=== PATIENT | male | born 1955 | race Caucasian/White ===

== ENCOUNTER 2023-12-26 14:13 | Observation (INO) ==
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
[2023-12-26] MEDS: NS 1,000 ML IV 1,000 ML IV ONE (14:39)
[2023-12-26 14:42] VITALS: BMI 31.2
[2023-12-26 14:52] LABS: BASOPHILS % (AUTO) 0.4 % (0.2-1.0); EOSINOPHILS # (AUTO) 0.2 x10^3/uL (0.0-0.2); EOSINOPHILS % (AUTO) 1.8 % (0.9-2.9); HEMATOCRIT 45.2 % (42.0-54.0); HEMOGLOBIN 15.3 g/dL (13.5-18.0); LYMPHOCYTES # (AUTO) 1.3 X10^3/uL (1.3-2.9); LYMPHOCYTES % (AUTO) 12.7 % (21.0-51.0); MEAN CORPUSCULAR HEMOGLOBIN 30.8 pg (27.0-34.0); MEAN CORPUSCULAR HGB CONC 33.8 g/dL (33.0-35.0); MEAN CORPUSCULAR VOLUME 91.1 fL (80.0-100.0); MEAN PLATELET VOLUME 9.7 fL (7.4-11.0); MONOCYTES # (AUTO) 0.8 x10^3/uL (0.3-0.8); MONOCYTES % (AUTO) 8.1 % (0.0-13.0); PLATELET COUNT 274 X10^3/uL (150.0-450.0); RED BLOOD COUNT 4.96 X10^6/uL (4.7-6.0); RED CELL DISTRIBUTION WIDTH 13.6 % (11.6-16.5); WHITE BLOOD COUNT 10.3 X10^3/uL (3.6-10.0)
[2023-12-26 15:00] LABS: ALANINE AMINOTRANSFERASE 31 Units/L (12-78); ALBUMIN 3.3 g/dL (3.4-5.0); ALKALINE PHOSPHATASE 89 Units/L (46-116); ASPARTATE AMINO TRANSFERASE 20 Units/L (15-37); BLOOD UREA NITROGEN 8 mg/dL (7-18); CALCIUM 9.2 mg/dL (8.5-10.1); CARBON DIOXIDE 27.2 mmol/L (21-32); CHLORIDE 93 mmol/L (98-107); COR CA(FOR HYPOALB) 9.8 mg/dL (8.5-10.1); COR NA(FOR HYPERGLY) 132 mmol/L (136-145); GLUCOSE 222 mg/dL (65-99); POTASSIUM 3.9 mmol/L (3.5-5.1); SODIUM 129 mmol/L (136-145); TOTAL PROTEIN 7.7 g/dL (6.4-8.2); eGFR NON BLACK RACES > 60 (>60)
[2023-12-26 15:08] LABS: LIPASE 412 Units/L (16-77)
--- NOTE | 2023-12-26 15:57 | CT ---
EXAM:ABDCMEN/PELVIS WITH CONHISTORY:DIFFUSE ABD PAIN;COMPARISON:None available.TECHNIQUE:Multiple axial images of the abdomen and pelvis were obtained from the lung bases to the pubic symphysis after the administration of IV contrast. Dose reduction techniques including Automated Exposure Control (AEC) and adjustment of mA and kV were utilized.FINDINGS:The visualized portions of the lung bases are unremarkable . The liver, spleen, pancreas, kidneys, and adrenal glands are unremarkable in their CT appearance. The gallbladder is unremarkable in its CT appearance . No significant mesenteric lymphadenopathy or stranding can be observed. No free fluid or free air is seen within the abdomen. The appendix is unremarkable in its CT appearance. Left-sided inguinal hernia is observed with predominantly fat containing hernia sac a sliding hernia sigmoid colon chest within the additional opening of the hernias. No bowel wall thickening or bowel dilatation is present. Diffuse diverticular changes of the sigmoid colon are observed without CT evidence for acute diverticulitis. The urinary bladder is grossly unremarkable. The bony structures are grossly intact.IMPRESSION:Left-sided inguinal hernia with small amount of sigmoid colon extending into the predominantly fat containing hernia sac. Diffuse diverticular changes of the sigmoid colon are observed without CT evidence for acute diverticulitis. Otherwise no acute abnormality of the abdomen or pelvis can be identified.THIS IS AN ELECTRONICALLY VERIFIED FINAL REPORT12/26/2023 3:50 PM - Electronically signed by Juaquin Segundo MD
[2023-12-26 16:14] LABS: BILIRUBIN,URINE NEGATIVE (NEGATIVE); BLOOD/HEMOGLOBIN,URINE 2+ (NEGATIVE); GLUCOSE, URINE 1+ (NEGATIVE); KETONES,URINE NEGATIVE (NEGATIVE); LEUKOCYTE ESTERASE ,URINE NEGATIVE (NEGATIVE); NITRITES,URINE NEGATIVE (NEGATIVE); PROTEIN,URINE 2+ (NEGATIVE); UROBILINOGEN,URINE NORMAL (NORMAL)
[2023-12-26 16:16] LABS: APPEARANCE,URINE CLEAR (CLEAR); COLOR,URINE YELLOW (YELLOW)
[2023-12-26 16:19] LABS: BACTERIA,URINE TRACE /HPF (NEGATIVE); SQUAMOUS EPITHELIAL CELL,UR FEW /HPF (NEGATIVE)
[2023-12-26] MEDS: LR 1,000 ML IV 1,000 ML IV SCH (16:56)
[2023-12-26] MEDS: MORPHINE SULFATE INJ 4 MG IVP ONE (17:24)
[2023-12-26] MEDS: ZOFRAN INJ 4 MG VIAL IVP ONE (17:25)
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
--- NOTE | 2023-12-26 17:49 | EKG ---
Test Reason : Irregular rate, frequent PACs Blood Pressure : */* mmHG Vent. Rate : 81 BPM Atrial Rate : * BPM P-R Int : * ms QRS Dur : 88 ms QT Int : 396 ms P-R-T Axes : * 34 64 degrees QTc Int : 460 ms Sinus rhythm with pvc and pacs Abnormal ECG No previous ECGs available Confirmed by Ja Bianchi MD ([id number]) on 12/27/2023 7:28:56 AM Referred By: Confirmed By: Ja Bianchi MD
[2023-12-26] MEDS ORDERED: CONSULT PHARMACY - POTASSIUM & MAGNESIUM XX SCH (18:42)
[2023-12-26] MEDS ORDERED: ZOFRAN INJ 4 MG VIAL IVP PRN (18:42)
[2023-12-26] MEDS: XALATAN OP SCH (21:11)
[2023-12-26] MEDS: CRESTOR TAB 10 MG PO SCH (21:12)
[2023-12-26] MEDS: MORPHINE SULFATE INJ 4 MG IVP PRN (21:13)
[2023-12-26] MEDS: NovoLIN R (or HumuLIN R) SUBCUT PRN (21:28)
[2023-12-27] MEDS: LR 1,000 ML IV 1,000 ML IV SCH (01:28)
[2023-12-27] MEDS: MAALOX or MYLANTA PO PRN (02:12)
[2023-12-27] MEDS: GLUCOPHAGE PO SCH (06:02)
[2023-12-27 06:52] LABS: BASOPHILS # (AUTO) 0.1 X10^3/uL (0.0-0.1); BASOPHILS % (AUTO) 0.9 % (0.2-1.0); EOSINOPHILS # (AUTO) 0.5 x10^3/uL (0.0-0.2); EOSINOPHILS % (AUTO) 4.2 % (0.9-2.9); HEMATOCRIT 44.5 % (42.0-54.0); HEMOGLOBIN 15.1 g/dL (13.5-18.0); LYMPHOCYTES # (AUTO) 1.5 X10^3/uL (1.3-2.9); LYMPHOCYTES % (AUTO) 13.4 % (21.0-51.0); MEAN CORPUSCULAR HEMOGLOBIN 30.6 pg (27.0-34.0); MEAN CORPUSCULAR HGB CONC 33.8 g/dL (33.0-35.0); MEAN CORPUSCULAR VOLUME 90.5 fL (80.0-100.0); MONOCYTES # (AUTO) 0.9 x10^3/uL (0.3-0.8); MONOCYTES % (AUTO) 8.4 % (0.0-13.0); NEUTROPHILS % (AUTO) 73.1 % (42.0-75.0); PLATELET COUNT 273 X10^3/uL (150.0-450.0); RED BLOOD COUNT 4.92 X10^6/uL (4.7-6.0); RED CELL DISTRIBUTION WIDTH 13.7 % (11.6-16.5)
[2023-12-27 07:02] LABS: ALANINE AMINOTRANSFERASE 27 Units/L (12-78); ALBUMIN 3.1 g/dL (3.4-5.0); ALKALINE PHOSPHATASE 84 Units/L (46-116); ASPARTATE AMINO TRANSFERASE 19 Units/L (15-37); BLOOD UREA NITROGEN 4 mg/dL (7-18); CALCIUM 8.9 mg/dL (8.5-10.1); CARBON DIOXIDE 32.3 mmol/L (21-32); CHLORIDE 96 mmol/L (98-107); COR CA(FOR HYPOALB) 9.6 mg/dL (8.5-10.1); COR NA(FOR HYPERGLY) 132 mmol/L (136-145); CREATININE 0.81 mg/dL (0.70-1.30); GLUCOSE 144 mg/dL (65-99); SODIUM 131 mmol/L (136-145); TOTAL PROTEIN 7.3 g/dL (6.4-8.2); eGFR NON BLACK RACES > 60 (>60)
[2023-12-27 07:08] LABS: LIPASE 301 Units/L (16-77)
[2023-12-27] MEDS: NS 100 ML IV 100 ML ONE (07:16)
[2023-12-27] MEDS: OMNIPAQUE 350 mg/mL 100 mL BTL 100 ML ONE (07:17)
[2023-12-27] MEDS: ZOFRAN INJ 4 MG VIAL ONE (07:17)
[2023-12-27] MEDS: MORPHINE SULFATE INJ 4 MG ONE (07:17)
[2023-12-27] MEDS: ZETIA TAB 10 MG PO SCH (08:35)
[2023-12-27] MEDS: PROTONIX INJ 40 MG VIAL IVP SCH ×2 (08:35→20:26)
[2023-12-27] MEDS: ALTACE 5 MG CAP PO SCH (08:35)
[2023-12-27] MEDS: LOPRESSOR TAB 25 MG PO SCH (08:35)
[2023-12-27] MEDS: TYLENOL 325 MG TAB PO PRN (08:36)
[2023-12-27] MEDS: NS 1,000 ML IV 1,000 ML IV SCH (09:27)
[2023-12-27] MEDS: ALBUMIN HUMAN 25%- 100 ML 100 ML IV SCH (09:28)
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
--- NOTE | 2023-12-27 13:45 | RAD ---
EXAM: THORACIC SPINE x-ray three views HISTORY: BACK PAIN - COMPARISON: None. FINDINGS: Moderate anterior and lateral osteophytes are seen in the mid to lower thoracic spine. No scoliosis is seen. No evidence of a compression fracture or subluxation is seen. IMPRESSION: Moderate anterior and lateral osteophytes are seen. THIS IS AN ELECTRONICALLY VERIFIED FINAL REPORT 12/27/2023 1:42 PM - Electronically signed by Da Gong MD
--- NOTE | 2023-12-27 13:47 | RAD ---
EXAM:X-ray lumbar spine three viewsHISTORY:BACK PAIN -COMPARISON:None.FINDINGS:No scoliosis. Large anterior and lateral osteophytes are seen throughout the lumbar spine. No compression fracture is seen but there is disc space narrowing at L3-4, L4-5, and L5-S1. Moderate to large posterior osteophytes are seen at these levels. Smaller posterior osteophytes are suspected in the upper lumbar spine. Hypertrophic arthritic facet changes are seen in the lower lumbar spine.IMPRESSION:Large osteophytes are seen with hypertrophic arthritic facet changes.THIS IS AN ELECTRONICALLY VERIFIED FINAL REPORT12/27/2023 1:44 PM - Electronically signed by Da Gong MD
--- NOTE | 2023-12-27 13:49 | RAD ---
EXAM: ACUTE ABDOMEN x-ray SERIES, one view chest and two views abdomen HISTORY: ABD PAIN - COMPARISON: None. FINDINGS: Heart is normal in size. Calcified granuloma is seen in the left upper lobe of the lungs. No pneumo thorax, focal infiltrate, or pleural effusion is seen. No evidence of free intraperitoneal air. There is moderate increased air within the nondependent por tions of the colon. Little small bowel air is seen without air-fluid levels. Consider possible ileu s. Mild retained fecal material in the colon is probably within normal limits. IMPRESSION: Moderate gaseous distention of the colon is concerning for possible ileus. THIS IS AN ELECTRONICALLY VERIFIED FINAL REPORT 12/27/2023 1:46 PM - Electronically signed by Da Gong MD
[2023-12-27] MEDS: SNACK - Diabetic Appropriate PO SCH (20:18)
[2023-12-28 05:10] LABS: HEMOGLOBIN 14.3 g/dL (13.5-18.0); MEAN CORPUSCULAR HEMOGLOBIN 30.3 pg (27.0-34.0)
[2023-12-28 05:17] LABS: BASOPHILS # (AUTO) 0.1 X10^3/uL (0.0-0.1); BASOPHILS % (AUTO) 0.8 % (0.2-1.0); EOSINOPHILS # (AUTO) 0.5 x10^3/uL (0.0-0.2); EOSINOPHILS % (AUTO) 4.1 % (0.9-2.9); HEMATOCRIT 42.8 % (42.0-54.0); LYMPHOCYTES # (AUTO) 1.4 X10^3/uL (1.3-2.9); LYMPHOCYTES % (AUTO) 11.3 % (21.0-51.0); MEAN CORPUSCULAR HGB CONC 33.5 g/dL (33.0-35.0); MEAN CORPUSCULAR VOLUME 90.4 fL (80.0-100.0); MEAN PLATELET VOLUME 10.2 fL (7.4-11.0); MONOCYTES # (AUTO) 0.9 x10^3/uL (0.3-0.8); MONOCYTES % (AUTO) 7.5 % (0.0-13.0); NEUTROPHILS # (AUTO) 9.3 x10^3/uL (2.2-4.8); NEUTROPHILS % (AUTO) 76.3 % (42.0-75.0); PLATELET COUNT 266 X10^3/uL (150.0-450.0); RED BLOOD COUNT 4.74 X10^6/uL (4.7-6.0); RED CELL DISTRIBUTION WIDTH 13.4 % (11.6-16.5); WHITE BLOOD COUNT 12.2 X10^3/uL (3.6-10.0)
[2023-12-28 05:21] LABS: ALANINE AMINOTRANSFERASE 30 Units/L (12-78); ALBUMIN 3.3 g/dL (3.4-5.0); ALKALINE PHOSPHATASE 78 Units/L (46-116); AMYLASE 103 Units/L (25-115); ASPARTATE AMINO TRANSFERASE 19 Units/L (15-37); BLOOD UREA NITROGEN 5 mg/dL (7-18); CALCIUM 9.1 mg/dL (8.5-10.1); CARBON DIOXIDE 32.3 mmol/L (21-32); CHLORIDE 95 mmol/L (98-107); COR CA(FOR HYPOALB) 9.7 mg/dL (8.5-10.1); COR NA(FOR HYPERGLY) 132 mmol/L (136-145); CREATININE 0.84 mg/dL (0.70-1.30); GLUCOSE 168 mg/dL (65-99); LIPASE 247 Units/L (16-77); POTASSIUM 4.1 mmol/L (3.5-5.1); SODIUM 130 mmol/L (136-145); TOTAL PROTEIN 7.3 g/dL (6.4-8.2); eGFR NON BLACK RACES > 60 (>60)
[2023-12-28] MEDS: REGLAN TAB 5 MG PO SCH (12:00)
[2023-12-28] MEDS: MOTRIN TAB 800 MG PO SCH (16:46)
--- NOTE | 2023-12-28 18:19 | PCM.PROG ---
Progress Note Progress Note for Day of Date of Exam: 12/28/23 Subjective Subjective: The patient reports he is feeling somewhat better this morning. Still having some bloating he states especially after he eats. Will start him on Reglan 5 mg p.o. before every meal and at bedtime to see how that helps him. I reviewed his x-rays of his thoracic and lumbar spine. It shows that he has a lot of osteophytes which are likely the cause of his back pain. He also has some degenerative disc disease in the lumbar region as well. His hemoglobin is up this morning but he remains mildly hyponatremic with a sodium at 132. Past Medical Family Social History Allergies: Allergies MS Clopidogrel [From Plavix] Allergy (Verified 12/26/23 14:29) Review of Systems ROS: No change since H&P Vital Signs and I&O's Vital Signs: Vital Signs Temperature 97.4 F Temperature 98.1 F Pulse Rate [Left Brachial] 73 Pulse Rate [Left Brachial] 59 Respiratory Rate 18 Respiratory Rate 18 Respiratory Rate 18 Respiratory Rate 20 Respiratory Rate 20 Respiratory Rate 18 Blood Pressure [Left Arm] 130/70 Blood Pressure [Left Arm] 176/84 O2 Sat by Pulse Oximetry 97 O2 Sat by Pulse Oximetry 97 Intake and Output: Intake & Output 12/26/23 12/27/23 12/28/23 12/29/23 11:59 11:59 11:59 11:59 Intake Total 2492 / 2492 4643 / 4643 1576 / 1576 Output Total 400 / 400 1800 / 1800 Balance 2 / 2092 2843 / 2843 1576 / 1576 Physical Exam Oriented: Normal, Time, Person and Place Eyes: Normal Ear: Normal Nose: Normal Throat: Normal Respiratory: Normal Cardiovascular: Normal Auscultation: Bowel Sounds: Increased Tenderness: Epigastric Skin: Normal Musculoskeletal: Back:Thoracic and Back:Lumbar Psychiatric: Normal Mood Description: Calm Affect: Normal Speech Pattern: Clear and Appropriate Laboratory and Diagnostics 12/28/23 04:29 12/28/23 04:29 Labs: Laboratory WBC 12.2 X10^3/uL (3.6-10.0) H 12/28/23 04:29 RBC 4.74 X10^6/uL (4.7-6.0) 12/28/23 04:29 Hgb 14.3 g/dL (13.5-18.0) 12/28/23 04: Hct 42.8 % (42.0-54.0) 12/28/23 04: MCV 90.4 fL (80.0-100.0) 12/28/23 04: MCH 30.3 pg (27.0-34.0) 12/28/23 04: MCHC 33.5 g/dL (33.0-35.0) 12/28/23 04: RDW 13.4 % (11.6-16.5) 12/28/23 04: Plt Count 266 X10^3/uL (150.0-450.0) 12/28/23 04: MPV 10.2 fL (7.4-11.0) 12/28/23 04: Neut % (Auto) 76.3 % (42.0-75.0) H 12/28/23 04: Lymph % (Auto) 11.3 % (21.0-51.0) L 12/28/23 04: [place] % (Auto) 7.5 % (0.0-13.0) 12/28/23 04: Eos % (Auto) 4.1 % (0.9-2.9) H 12/28/23 04: Baso % (Auto) 0.8 % (0.2-1.0) 12/28/23 04: Neut # (Auto) 9.3 x10^3/uL (2.2-4.8) H 12/28/23 04: Lymph # (Auto) 1.4 X10^3/uL (1.3-2.9) 12/28/23 04:29 [place] # (Auto) 0.9 x10^3/uL (0.3-0.8) H 12/28/23 04: Eos # (Auto) 0.5 x10^3/uL (0.0-0.2) H 12/28/23 04: Baso # (Auto) 0.1 X10^3/uL (0.0-0.1) 12/28/23 04: Absolute Nucleated RBC 0.0 /100WBC 12/28/23 04: Sodium 130 mmol/L (136-145) L 12/28/23 04:29 Corrected Sodium 132 mmol/L (136-145) L 12/28/23 04:29 Potassium 4.1 mmol/L (3.5-5.1) 12/28/23 04:29 Chloride 95 mmol/L (98-107) L 12/28/23 04:29 Carbon Dioxide 32.3 mmol/L (21-32) H 12/28/23 04:29 BUN 5 mg/dL (7-18) L 12/28/23 04:29 Creatinine 0.84 mg/dL (0.70-1.30) 12/28/23 04:29 Est GFR (MDRD) Af Amer > 60 (>60) 12/28/23 04:29 Est GFR (MDRD) Non-Af > 60 (>60) 12/28/23 04:29 Glucose 168 mg/dL (65-99) H 12/28/23 04:29 POC Glucose (mg/dL) 169 mg/dL (65-99) H 12/28/23 16:50 Lactic Acid 1.7 mmol/L (0.4-2.0) 12/26/23 15:23 Calcium 9.1 mg/dL (8.5-10.1) 12/28/23 04:29 Corrected Calcium 9.7 mg/dL (8.5-10.1) 12/28/23 04:29 Total Bilirubin 0.50 mg/dL (0.2-1.0) 12/28/23 04:29 AST 19 Units/L (15-37) 12/28/23 04:29 ALT 30 Units/L (12-78) 12/28/23 04:29 Alkaline Phosphatase 78 Units/L (46-116) 12/28/23 04:29 Total Protein 7.3 g/dL (6.4-8.2) 12/28/23 04:29 Albumin 3.3 g/dL (3.4-5.0) L 12/28/23 04:29 Globulin 4.0 g/dL (2.5-4.5) 12/28/23 04:29 Albumin/Globulin Ratio 0.8 Ratio (1.1-2.1) L 12/28/23 04:29 Amylase 103 Units/L (25-115) 12/28/23 04:29 Lipase 247 Units/L (16-77) H 12/28/23 04:29 Specimen Type Clean catch urine 12/26/23 15:51 Urine Color Yellow (YELLOW) 12/26/23 15:51 Urine Appearance Clear (CLEAR) 12/26/23 15:51 Urine pH 5.0 (5.0 - 8.0) 12/26/23 15:51 Ur Specific [place] 1.025 (1.000-1.030) 12/26/23 15:51 Urine Protein 2+ (NEGATIVE) 12/26/23 15:51 Urine Glucose (UA) 1+ (NEGATIVE) 12/26/23 15:51 Urine Ketones Negative (NEGATIVE) 12/26/23 15:51 Urine Blood 2+ (NEGATIVE) 12/26/23 15:51 Urine Nitrite Negative (NEGATIVE) 12/26/23 15:51 Urine Bilirubin Negative (NEGATIVE) 12/26/23 15:51 Urine Urobilinogen Normal (NORMAL) 12/26/23 15:51 Ur Leukocyte Esterase Negative (NEGATIVE) 12/26/23 15:51 Urine RBC 3-5 /HPF (0-3) A 12/26/23 15:51 Urine WBC 0-2 /HPF (0-5) 12/26/23 15:51 Ur Squamous Epith Cells Few /HPF (NEGATIVE) 12/26/23 15:51 Urine Bacteria Trace /HPF (NEGATIVE) 12/26/23 15:51 Urine Mucus Many /HPF (NEGATIVE) 12/26/23 15:51 Ur Culture Indicated? No/not indicated 12/26/23 15:51 Plan (1) Abdominal pain: Status: Acute Qualifiers: Abdominal location: left lower quadrant Qualified Code(s): R10.32 - Left lower quadrant pain Plan: Consult general surgery, Dr. Tran for possible partial small bowel obstruction and abdominal pain. (2) Elevated lipase: Status: Acute Plan: CT scan was done of the patient's abdomen and pelvis and it shows no fat stranding around his pancreas. I do not suspect pancreatitis at this time. (3) Inguinal hernia, left: Status: Acute Plan: Evaluation per general surgery. (4) Acute hyponatremia: Status: Acute Narrative Support Text: The patient's hyponatremia is mild and stable at 132. Plan: Patient has been on lactated Ringer's solution but I will change him to normal saline for a quicker correction of his hyponatremia. He is only mildly elevated so there is no significant risk for demyelination syndrome with normal saline. (5) Acid reflux: Status: Acute Qualifiers: Esophagitis presence: esophagitis presence not specified Qualified Code(s): K21.9 - Gastro-esophageal reflux disease without esophagitis Plan: Continue the patient on pantoprazole. (6) Abdominal bloating: Status: Acute Plan: The patient has been started on pantoprazole. Hopefully decreasing the amount of stomach acid he has will decrease the excessive gas that he is having now. (7) Thoracic spine pain: Status: Acute Plan: Check T-spine. (8) Lumbar spine pain: Status: Acute Narrative Support Text: Bone spur seen in the thoracic spine which are on the larger side. Plan: Degenerative disc disease of the thoracic and lumbar spine with large osteophytes present. We will start him back on ibuprofen 800 mg every 6 hours as this is what he takes at home. He states this normally works well for him. (9) Primary hypertension: Status: Acute Plan: Continue ramipril and metoprolol extended-release. Monitor blood pressure daily. (10) Postprandial bloating: Status: Acute Narrative Support Text: The patient complains of postprandial epigastric bloating. Plan: Start Reglan 5 mg p.o. before every meal and at bedtime.
[2023-12-29 05:12] VITALS: TEMP 97.8
[2023-12-29 06:45] LABS: BASOPHILS # (AUTO) 0.1 X10^3/uL (0.0-0.1); BASOPHILS % (AUTO) 0.9 % (0.2-1.0); EOSINOPHILS # (AUTO) 0.9 x10^3/uL (0.0-0.2); HEMATOCRIT 38.9 % (42.0-54.0); HEMOGLOBIN 13.4 g/dL (13.5-18.0); LYMPHOCYTES # (AUTO) 1.3 X10^3/uL (1.3-2.9); LYMPHOCYTES % (AUTO) 12.5 % (21.0-51.0); MEAN CORPUSCULAR HEMOGLOBIN 31.1 pg (27.0-34.0); MEAN CORPUSCULAR HGB CONC 34.3 g/dL (33.0-35.0); MEAN CORPUSCULAR VOLUME 90.5 fL (80.0-100.0); MEAN PLATELET VOLUME 10.5 fL (7.4-11.0); MONOCYTES % (AUTO) 9.6 % (0.0-13.0); PLATELET COUNT 278 X10^3/uL (150.0-450.0); RED CELL DISTRIBUTION WIDTH 13.6 % (11.6-16.5); WHITE BLOOD COUNT 10.3 X10^3/uL (3.6-10.0)
[2023-12-29 06:57] LABS: BLOOD UREA NITROGEN 8 mg/dL (7-18); CARBON DIOXIDE 27.8 mmol/L (21-32); CHLORIDE 100 mmol/L (98-107); SODIUM 134 mmol/L (136-145); eGFR NON BLACK RACES > 60 (>60)
[2023-12-29 06:58] LABS: ALANINE AMINOTRANSFERASE 26 Units/L (12-78); ALBUMIN 3.1 g/dL (3.4-5.0); ALKALINE PHOSPHATASE 68 Units/L (46-116); ASPARTATE AMINO TRANSFERASE 18 Units/L (15-37); CALCIUM 8.7 mg/dL (8.5-10.1); COR CA(FOR HYPOALB) 9.4 mg/dL (8.5-10.1); COR NA(FOR HYPERGLY) 135 mmol/L (136-145); GLUCOSE 159 mg/dL (65-99); TOTAL PROTEIN 6.6 g/dL (6.4-8.2)
[2023-12-29 09:46] VITALS: BP 160/81; PULSE 74; O2SAT 95
[2023-12-29 10:30] VITALS: RESP 18
== END 2023-12-29 12:59 | disposition home or self-care (01) ==
LOC: ER 14:13 → MED/SURG 14:13
PROVIDERS: ADMIT Obstetrics & Gynecology Obstetrics; ATTEND Family Medicine
DX: I10 Essential (primary) hypertension; I25.2 Old myocardial infarction; E11.65 Type 2 diabetes mellitus with hyperglycemia; E55.9 Vitamin D deficiency, unspecified; M51.34 Other intervertebral disc degeneration, thoracic region; E87.1 Hypo-osmolality and hyponatremia; I25.10 Atherosclerotic heart disease of native coronary artery without angina pectoris; R10.32 Left lower quadrant pain; M51.36 Other intervertebral disc degeneration, lumbar region; K57.30 Diverticulosis of large intestine without perforation or abscess without bleeding; K40.30 Unilateral inguinal hernia, with obstruction, without gangrene, not specified as recurrent; E78.5 Hyperlipidemia, unspecified; Z68.31 Body mass index [BMI] 31.0-31.9, adult; M54.50 Low back pain, unspecified; R14.0 Abdominal distension (gaseous); R94.31 Abnormal electrocardiogram [ECG] [EKG]; R74.8 Abnormal levels of other serum enzymes; K21.9 Gastro-esophageal reflux disease without esophagitis